=== PATIENT | female | born 1940 ===

== ENCOUNTER 2018-05-19 08:15 | Outpatient (CLI) | payer MEDICARE, BC | END 2018-05-19 08:16 | disposition home or self-care (01) | LOC: LAB 08:15 | DX: M31.6 Other giant cell arteritis (principal) ==

== ENCOUNTER 2018-08-13 07:54 | Outpatient (CLI) | payer MEDICARE, BC | END 2018-08-13 07:55 | disposition home or self-care (01) | LOC: LAB 07:54 ==